=== PATIENT | female | born 1965 | race Caucasian/White ===

== ENCOUNTER 2016-12-28 08:13 | Day surgery (SDC) | payer BC ==
[~2016-12-28] VITALS: Ht 152.4 cm; Wt 69.0 kg
[~2016-12-28 08:13] MED LIST: AMPH30CA PO; ATOR20TA PO; DOCU-243 PO; ESTR1TAB27 PO; LACTATED RINGERS 1,000 ML IV SCH; LEVO75TA6 PO; LIDOCAINE 4% TOPICAL 4.5 ML SYR ONE; LSNP10T PO; MELO-249 PO; OMEP20TA PO; SERT50TA PO; SIMETHICONE 40 MG/0.6 ML (MYLICON DROPS) ORAL SYRINGE ONE; SODIUM CHLORIDE FLUSH 3 ML SYR IV PRN
--- OUTSIDE RECORDS SUMMARY | 2016-12-28 08:17 | XMS REPORT | Referral Summary ---
Author Author [facility] Organization [facility] Address Unknown Phone Unavailable Care Team Providers Care Speech Language Pathology Assistant Name Role Phone Gita Lindsay PCP [phone] Encounter VC Date(s): 09/07/15 - 09/07/15 [facility] [address] [place], [place] [address] Discharge Disposition: 01-Home or Self Care Attending Physician: Ashley Rodgers DO Admitting Physician: Ashley Rodgers DO Vital Signs No data available for this section Problem List Condition Effective Dates Status Health Status Informant Depression(Confirmed Active ) Hearing Active loss(Confirmed) Hyperlipidemia(Confi Active rmed) Hypothyroid(Confirme Active d) Irregular heart Resolved rate(Confirmed) Mitral valve Active disease(Confirmed) Retained myringotomy Active tube(Confirmed) Allergies, Adverse Reactions, Alerts No Known Medication Allergies Medications atorvastatin 20 mg oral tablet 20 mg 1 tabs, Oral, Daily, # 90 tabs, 1 Refill(s), Pharmacy: [id number], 1 tabs Oral Daily Start Date: 08/26/15 Status: OrderedbuPROPion 150 mg, Oral, Once, TAKES 3 QD, 0 Refill(s) Start Date: 04/06/14 Status: Ordereddextroamphetamine-amphetamine 30 mg oral tablet 1 tabs, Oral, BID, 0 Refill(s) Start Date: 04/06/14 Status: Orderedesterified estrogens-methylTESTOSTERone 1.25 mg-2.5 mg oral tablet 1 tabs, Oral, Daily, # 30 tabs, 3 Refill(s), called to pharmacy (Rx) Start Date: 08/26/15 Status: OrderedlamoTRIgine 25 mg oral tablet 25 mg 1 tabs, Oral, Daily, 0 Refill(s) Start Date: 08/12/15 Status: Orderedranitidine 150 mg oral tablet 150 mg 1 tabs, Oral, BID, # 60 tabs, 5 Refill(s), Pharmacy: [facility] [id number], 1 tabs Oral BID Start Date: 08/23/15 Status: OrderedSynthroid 75 mcg (0.075 mg) oral tablet 75 mcg 1 tabs, Oral, Daily, NEED THYROID LAB BEFORE FURTHER REFILLS WILL BE ISSUED, # 30 tabs, 0 Refill(s), Pharmacy: [facility] [id number], 1 tabs Oral Daily,x30 days,Instr:NEED THYROID LAB BEFORE FURTHER REFILLS WILL BE ISSUED Start Date: 08/11/15 Stop Date: 09/10/15 Status: Ordered Results No data available for this section Immunizations Vaccine Date Refusal Reason tetanus/diphth/pertuss (Tdap) adult/adol 11/19/14 Procedures Procedure Date Related Diagnosis Body Site Esophagogastroduodenoscopy and biopsy1, 2 05/20/14 [facility] - Total abdominal hysterectomy and 1998 bilateral salpingo-oophorectomy Appendectomy 1978 Cardiac catheterization of right and left heart for ventriculography 1Mild Esophagitis ,no cancer,no barretts.f/u on prn basis.2dilated to 53 [place] Social History Social History Type Response Smoking Status Former smoker; Stopped at age: 24 Assessment and Plan No data available for this section
[2016-12-28 08:19] VITALS: BP 129/78
[2016-12-28] MEDS ORDERED: MIDAZOLAM 2 MG/2 ML (VERSED) VIAL ONE (09:57)
[2016-12-28] MEDS ORDERED: PROPOFOL 20 ML IV ONE ×2 (09:57)
[2016-12-28] MEDS ORDERED: ALFENTANIL 500 MCG/ML (ALFENTA) 5 ML AMP IV ONE (09:57)
[2016-12-28 10:45] VITALS: BP 129/73
[2016-12-28 11:08] VITALS: BP 144/93
--- NOTE | 2016-12-28 11:09 | OPERATIVE REPORT ---
DATE OF OPERATION: 10/28/2016 PRE-OPERATIVE DIAGNOSIS: 1. Early Satiety. 2. Persistent heartburn. 3. Bright red blood per rectum. POST-OPERATIVE DIAGNOSIS: Normal upper and lower endoscopy. OPERATIVE PROCEDURE: 1. Esophagogastroduodenoscopy with biopsies. 2. Total colonoscopy SURGEON: Osvaldo Freitas MD ANESTHESIA: Monitored anesthesia care FINDINGS: 1. The esophagus, stomach and duodenum appeared normal with no inflammation, ulcers or neoplasia. Biopsies were obtained from the second portion of the duodenum, the antrum and esophagus. Pathology is pending. 2. The bowel prep was excellent. 3. No neoplasia, angiodysplasia, diverticula or inflammation were seen in the colon or rectum. INDICATION: The patient is a 51-year-old referred by Kendra Smiley APRN due to the above mentioned symptoms. She has persistent heartburn despite PPI therapy, and due to these other symptoms, I recommended upper and lower endoscopy. She presents today for these procedures. DESCRIPTION OF PROCEDURE: The patient was informed of the risks and benefits and agreed to proceed. She was placed in the supine position and administered IV sedation. A bite block was placed. The lighted endoscope was passed down the esophagus and into the stomach. Air was insufflated. The pylorus was cannulated and the first, second and third portions of the duodenum were visualized. No abnormalities were seen. Biopsies were obtained from the second portion to evaluate for possible celiac disease. The scope was brought back into the stomach where the antrum, body, and fundus were inspected. No abnormalities were seen. Biopsies were obtained from the antrum for LISA and histology. Retroflexion revealed a normal gastric cardia. The diaphragmatic hiatus was seen at approximately 38 cm with the squamocolumnar junction clean, intact, and without any significant inflammation. The distal esophagus was biopsied as was the mid esophagus, but no abnormalities were seen there. The scope was removed completing this portion of the procedure. Attention was then turned to the colonoscopy. A digital rectal exam was performed, which was normal. The lighted endoscope was passed into the rectum and slowly advanced along the colon to the cecum. The ileocecal valve and the appendiceal orifice were easily seen. The scope was slowly brought back through the ascending, transverse, descending, and sigmoid colon. No inflammation or neoplasia was seen. The rectum appeared normal. The scope was removed completing the procedure. The patient tolerated the procedure without complications. I will see her back in the clinic next week in [place]. I recommend a repeat screening colonoscopy in 10 years.
== END 2016-12-28 11:22 | disposition home or self-care (01) ==
LOC: ASC 08:13
PROVIDERS: ATTEND Surgery
DX: R12 Heartburn (principal); K62.5 Hemorrhage of anus and rectum; R68.81 Early satiety; K29.50 Unspecified chronic gastritis without bleeding; K20.9 Esophagitis, unspecified; I10 Essential (primary) hypertension; E03.9 Hypothyroidism, unspecified
CPT/HCPCS: 43239; 45378; 87077; 93005; J2250; J7120